=== PATIENT | male | born 1980 | race Hispanic/Latino ===

== ENCOUNTER 2017-08-25 10:42 | Emergency (ER) | payer BC, MEDICAID ==
[2017-08-25 10:54] VITALS: BMI 29.7
[2017-08-25 10:56] VITALS: RESP 18
[2017-08-25] MEDS ORDERED: Albuterol 0.083% Inhal Sol (2.5 mg/3 mL) UD IH STA (11:40)
--- NOTE | 2017-08-25 11:42 | C.PDOC ---
History Of Present Illness 36 yo male w/o significant PMHx come in for evaluation of cold sx for past associated with nasal congestion, runny nose and productive cough with yellow sputum gradually worsen for past 2 weeks. Pt reports, unable to sleep for past few night, (+) wheezing. Otherwise, pt denies fever, chills, headache, dizziness , drooling, dysphagia, dyspnea, CP, SOB, abd. pain, V/D, back pain, UTI sx. Ambulate to ED for evaluation, not in nay apparent distress. Time Seen by Provider: 08/25/17 11:17 Chief Complaint (Nursing): Cough, Cold, Congestion Past Medical History Vital Signs: Last Vital Signs Temp 98.0 F 08/25/17 10:54 Pulse 63 08/25/17 10:54 Resp 18 08/25/17 10:54 BP 124/78 08/25/17 10:54 Pulse Ox 100 08/25/17 12:36 Surgical History: Appendectomy Family History: States: No Known Family Hx - Social History Hx Tobacco Use: No Hx Alcohol Use: No Hx Substance Use: No - Immunization History Hx Tetanus Toxoid Vaccination: No Hx Influenza Vaccination: No Hx Pneumococcal Vaccination: No Physical Exam - Physical Exam Appears: Well, Non-toxic, No Acute Distress Skin: Normal Color, Warm, Dry, No Rash Head: Normacephalic Eye(s): bilateral: PERRL Ear(s): Bilateral: Normal Nose: No Flaring, Discharge Oral Mucosa: Moist, No Drooling Tongue: Normal Appearing Lips: Normal Appearing Throat: Erythema (mild B/L), No Exudate, No Drooling Neck: Trachea Midline, Supple Cardiovascular: Rhythm Regular Respiratory: No Decreased Breath Sounds, No Accessory Muscle Use, No Stridor, Wheezing (scattered Right base) Gastrointestinal/Abdominal: Soft, No Tenderness Back: No CVA Tenderness Extremity: Normal ROM, No Pedal Edema Neurological/Psych: Oriented x3, Normal Speech, Normal Motor, Normal Sensation, Normal Reflexes ED Course And Treatment O2 Sat by Pulse Oximetry: 100 Pulse Ox Interpretation: Normal - Radiology CXR: Interpreted by Me, Viewed By Me CXR Interpretation: Yes: No Acute Disease - Other Rad CXR X-Ray: Read By Radiologist Interpretation: IMPRESSION: No focal consolidation, significant pleural effusion, or definite pneumothorax identified. Progress Note: On re-evaluation, pt is afebrile, hemodynamicaly stable. non- toxic. PulsEOx 100% RA. ENT: no acute findings. neck: Supple, (-) JVD. Lungs : moderate improvement in Right side base wheezing, BS equal B/L. CVS: (+)S1S2 , reg. Abd: benign. CXR; no acute abnormalities. Pt has clinical findings c/ w acute bronchitis, RAD. Pt advised to F/u with PMD, Pulm in 2-3 days for re- eavl. return to ED if any worsening or new changes. Pt understand and agrees with discharges. Disposition Counseled Patient/Family Regarding: Studies Performed, Diagnosis, Need For Followup, Rx Given - Disposition Referrals: Clinic,Med Surg [Primary Care Provider] - Disposition: HOME/ ROUTINE Disposition Time: 12:56 Condition: STABLE Additional Instructions: TAKE MEDICATION PRESCRIBED ENCOURAGE FLUIDS FOLLOW UP WITH PMD IN 2-3 DAYS FOR RE-EVALUATION. RETURN TO ED IF ANY WORSENING OR NEW CHANGES. Prescriptions: Albuterol HFA [Ventolin HFA 90 mcg/actuation (8 g)] 1 puff IH Q6 #1 inhaler Azithromycin [Zithromax] 250 mg PO DAILY #4 tab Benzonatate [Tessalon Perle] 100 mg PO TID #14 capsule Prednisone [Deltasone] 40 mg PO DAILY #6 tablet Instructions: Reactive Airways Disease (ED), Acute Bronchitis (ED) Forms: [employer] (Portuguese), Work Excuse - Clinical Impression Clinical Impression: Bronchitis, Reactive airway disease
[2017-08-25] MEDS ORDERED: Albuterol 0.083% Inhal Sol (2.5 mg/3 mL) UD ONE (11:56)
--- NOTE | 2017-08-25 12:04 | RAD ---
HISTORY: Cough COMPARISON: None available. TECHNIQUE: Chest PA and lateral FINDINGS: LUNGS: No focal consolidation. Please note that chest x-ray has limited sensitivity for the detection of pulmonary masses. PLEURA: No significant pleural effusion identified. No definite pneumothorax . CARDIOVASCULAR: The cardiomediastinal silhouette appears within normal limits of size. OSSEOUS STRUCTURES: No acute osseous abnormality identified. VISUALIZED UPPER ABDOMEN: Unremarkable. OTHER FINDINGS: None. IMPRESSION: No focal consolidation, significant pleural effusion, or definite pneumothorax identified.
[2017-08-25 12:14] LABS: RBC URINE 2 /hpf (0-3); URINE BILIRUBIN NEGATIVE (NEGATIVE); URINE BLOOD NEGATIVE (NEGATIVE); URINE COLOR Yellow (YELLOW); URINE GLUCOSE (UA) NORMAL (Normal); URINE KETONE NEGATIVE (NEGATIVE); URINE LEUKOCYTE ESTERASE NEG Leu/uL (Negative); URINE PROTEIN NEGATIVE (NEGATIVE); URINE UROBILINOGEN NORMAL mg/dL (0.2-1.0); WBC URINE 1 /hpf (0-5)
[2017-08-25] MEDS ORDERED: Albuterol-Ipratrop 3 mg / 0.5 (3 ml) UD IH STA (12:21)
[2017-08-25] MEDS ORDERED: Albuterol-Ipratrop 3 mg / 0.5 (3 ml) UD ONE (12:38)
[2017-08-25 13:59] VITALS: BP 100/59; PULSE 67; TEMP 98.2; O2SAT 97
== END 2017-08-25 13:33 | disposition home or self-care (01) ==
LOC: C.ER 10:42 → SUPCPDRO 10:42 → C.ER 13:33
DX: J45.909 Unspecified asthma, uncomplicated (principal)